=== PATIENT | female | born 1955 | race Caucasian/White ===

== ENCOUNTER 2022-07-03 08:26 | Inpatient (IN) | payer MEDICARE, MEDICAID ==
[~2022-07-03] VITALS: Ht 157.5 cm; Wt 59.4 kg
[2022-07-03] MEDS ORDERED: PIPERACILLIN/TAZ 3.375G PREMIX 50 ML IV ONE (08:45)
[2022-07-03] MEDS ORDERED: ACETAMINOPHEN 650MG SUPP PR ONE (08:45)
[2022-07-03] MEDS ORDERED: SODIUM CHLORIDE 0.9% 1000ML BAG (SEPSIS BOLUS) IV ONE (08:45)
[2022-07-03] MEDS ORDERED: VANCOMYCIN 1G PREMIX 200 ML IV ONE (08:45)
[2022-07-03 09:07] LABS: BASOPHILS % 0.3 % (0.0-2.0); EOSINOPHILS % 3.2 % (0.0-5.0); HEMATOCRIT. 35.8 % (36.0-48.0); HEMOGLOBIN. 11.3 g/dL (12.0-16.0); LYMPHOCYTES % 21.1 % (20.0-50.0); MEAN CORPUSCULAR HEMOGLOBIN 26.6 pg (28.0-32.0); MEAN CORPUSCULAR VOLUME 84.1 fL (81.0-99.0); MEAN PLATELET VOLUME 8.5 fl (7.4-10.4); MONOCYTES % 6.4 % (2.0-8.0); PLATELET 297 x1000/uL (130-400); RED BLOOD CELL COUNT 4.26 mill/uL (4.2-5.4); RED CELL DISTRIBUTION WIDTH 16.8 % (11.6-14.6)
[2022-07-03 09:20] LABS: PROTHROMBIN TIME 10.8 sec (9.6-11.0)
[2022-07-03 09:22] LABS: BG BASE EXCESS 4.5 mmol/L (-2.0-2.0); BG CARBOXYHEMOGLOBIN 0.3 % (0.5-1.5); BG DEOXYHEMOGLOBIN 0.9 % (0.0-5.0); BG FRACTION INSPIRED OXYGEN 24; BG HCO3 ACT 28.8 mmol/L (22.0-26.0); BG METHEMOGLOBIN 0.3 % (0.0-1.5); BG OXYGEN SATURATION 99.1 % (92.0-98.5); BG OXYHEMOGLOBIN 98.5 % (94.0-97.0); BG PCO2 41.9 mmHg (35.0-45.0); BG PH 7.455 (7.350-7.450); BG PO2 170.5 mmHg (75.0-100.0); BG SAMPLE SITE RIGHT RADIAL; BG TOTAL HEMOGLOBIN 11.2 g/dL (12.0-18.0); BG VENT MODE T PIECE
[2022-07-03 09:23] LABS: CHLORIDE 105 mEq/L (98-107)
[2022-07-03 10:49] LABS: CLARITY URINE CLEAR (CLEAR); COLOR URINE YELLOW (YELLOW); KETONES URINE NEGATIVE (NEGATIVE); LEUKOCYTE ESTERASE URINE 1+ (NEGATIVE); NITRITE URINE POSITIVE (NEGATIVE); OCCULT BLOOD URINE NEGATIVE (NEGATIVE); PH URINE 5.5 (4.5-8.0); PROTEIN URINE 1+ (NEGATIVE); SPECIFIC GRAVITY URINE 1.039 (1.005-1.030); UROBILINOGEN URINE 0.2 E.U./dL (0.2-1.0)
[2022-07-03 16:00] VITALS: BP 130/52
[2022-07-03 16:30] VITALS: BP 130/52
[2022-07-03] MEDS ORDERED: ONDANSETRON HCL 4MG/2ML INJ IV PRN (16:45)
[2022-07-03] MEDS ORDERED: ACETAMINOPHEN 325MG TABLET PO PRN (16:45)
[2022-07-03] MEDS: SODIUM CHLORIDE 0.9% 1,000 ML IV SCH (19:46)
[2022-07-03 20:00] VITALS: BP 131/56
[2022-07-03] MEDS: PIPERACILLIN/TAZOBACTAM 3.375 G in DEXTROSE 5% WATER 50 ML IV SCH (20:38)
[2022-07-03] MEDS ORDERED: ACET160S GT (23:03)
[2022-07-03] MEDS ORDERED: LEVE10006 GT (23:03)
[2022-07-03] MEDS ORDERED: AMLO5TAB88 GT (23:03)
[2022-07-03] MEDS ORDERED: ASCO500C18 PO (23:03)
[2022-07-03] MEDS ORDERED: ALBU05 NEB (23:03)
[2022-07-03] MEDS ORDERED: FAMO20TA8 GT (23:03)
[2022-07-03] MEDS ORDERED: DEXTL GT (23:03)
[2022-07-03] MEDS ORDERED: ZINC50TA69 GT (23:03)
[2022-07-04] VITALS: BP 132/57
[2022-07-04 04:00] VITALS: BP 158/79
[2022-07-04] MEDS: SODIUM CHLORIDE 0.9% 1,000 ML IV SCH ×2 (06:05→22:15)
[2022-07-04] MEDS: PIPERACILLIN/TAZOBACTAM 3.375 G in DEXTROSE 5% WATER 50 ML IV SCH ×3 (06:18→22:15)
[2022-07-04] MEDS ORDERED: IPRATROPIUM/ALBUTEROL 0.5-3(2.5)MG/3ML NEB HHN PRN (07:15)
[2022-07-04 07:23] LABS: CHLORIDE 106 mEq/L (98-107)
[2022-07-04 07:38] LABS: BASOPHILS % 0.3 % (0.0-2.0); EOSINOPHILS % 3.3 % (0.0-5.0); HEMATOCRIT. 35.3 % (36.0-48.0); HEMOGLOBIN. 11.3 g/dL (12.0-16.0); LYMPHOCYTES % 20.7 % (20.0-50.0); MEAN CORPUSCULAR HEMOGLOBIN 26.8 pg (28.0-32.0); MEAN CORPUSCULAR VOLUME 83.3 fL (81.0-99.0); MEAN PLATELET VOLUME 8.3 fl (7.4-10.4); MONOCYTES % 5.7 % (2.0-8.0); PLATELET 277 x1000/uL (130-400); RED BLOOD CELL COUNT 4.24 mill/uL (4.2-5.4); RED CELL DISTRIBUTION WIDTH 16.5 % (11.6-14.6)
[2022-07-04 08:00] VITALS: BP 127/91
[2022-07-04 12:00] VITALS: BP 140/64
[2022-07-04 16:00] VITALS: BP 151/64
[2022-07-04] MEDS: VANCOMYCIN 500MG PREMIX 100 ML IV SCH (18:00)
[2022-07-04 20:00] VITALS: BP 148/67
[2022-07-05] VITALS: BP 157/66
[2022-07-05] MEDS: IPRATROPIUM/ALBUTEROL 0.5-3(2.5)MG/3ML NEB HHN SCH ×4 (00:10→22:00)
[2022-07-05 04:00] VITALS: BP 139/60
[2022-07-05] MEDS: PIPERACILLIN/TAZOBACTAM 3.375 G in DEXTROSE 5% WATER 50 ML IV SCH ×3 (06:42→22:17)
[2022-07-05] MEDS: VANCOMYCIN 500MG PREMIX 100 ML IV SCH (06:43)
[2022-07-05 08:00] VITALS: BP 134/57
[2022-07-05] MEDS: SODIUM CHLORIDE 0.9% 1,000 ML IV SCH ×2 (08:23→22:17)
[2022-07-05 12:00] VITALS: BP 128/46
[2022-07-05 16:00] VITALS: BP 132/54
[2022-07-05 20:00] VITALS: BP 124/50
[2022-07-06] VITALS: BP 120/45
[2022-07-06 04:00] VITALS: BP 122/52
[2022-07-06] MEDS: PIPERACILLIN/TAZOBACTAM 3.375 G in DEXTROSE 5% WATER 50 ML IV SCH ×2 (06:32→17:02)
[2022-07-06 07:34] LABS: BASOPHILS % 0.4 % (0.0-2.0); EOSINOPHILS % 3.3 % (0.0-5.0); HEMOGLOBIN. 11.1 g/dL (12.0-16.0); LYMPHOCYTES % 21.3 % (20.0-50.0); MEAN CORPUSCULAR HEMOGLOBIN 26.8 pg (28.0-32.0); MEAN CORPUSCULAR VOLUME 82.3 fL (81.0-99.0); MEAN PLATELET VOLUME 8.5 fl (7.4-10.4); PLATELET 273 x1000/uL (130-400); RED BLOOD CELL COUNT 4.12 mill/uL (4.2-5.4)
[2022-07-06] MEDS: IPRATROPIUM/ALBUTEROL 0.5-3(2.5)MG/3ML NEB HHN SCH ×2 (07:57→15:39)
[2022-07-06 07:58] LABS: CHLORIDE 101 mEq/L (98-107)
[2022-07-06 08:00] VITALS: BP 140/55
[2022-07-06 08:13] LABS: CREATINE KINASE 32 IU/L (26-192); VANCOMYCIN TROUGH 1.8 ug/mL (5.0-10.0)
[2022-07-06] MEDS ORDERED: POTASSIUM CHLORIDE 20MEQ/PACKET GT NR (08:30)
[2022-07-06] MEDS: SODIUM CHLORIDE 0.9% 1,000 ML IV SCH (10:26)
[2022-07-06 12:00] VITALS: BP 143/44
[2022-07-06 16:00] VITALS: BP 121/40
[2022-07-06 20:14] VITALS: BP 125/45
== END 2022-07-06 23:20 | DRG 853 ==
LOC: ER 08:26 → EDBEDREQSVC 12:05 → EDBEDREQ 12:05 → EDBEDREQTM 12:05 → 6WST 12:52 → EDBEDREQTM 13:00 → EDBEDREQ 13:00 → ENRESERV 13:18 → EDBEDREQ 16:38
PROVIDERS: ADMIT Family Medicine Adult Medicine; ATTEND Family Medicine Adult Medicine
PROC: 0JB70ZZ Excision of Back Subcutaneous Tissue and Fascia, Open Approach (ICD-10-PCS; principal; 2022-07-04)
DX: A41.1 Sepsis due to other specified staphylococcus (principal); E43 Unspecified severe protein-calorie malnutrition; L89.153 Pressure ulcer of sacral region, stage 3; J96.20 Acute and chronic respiratory failure, unspecified whether with hypoxia or hypercapnia; N39.0 Urinary tract infection, site not specified; I82.403 Acute embolism and thrombosis of unspecified deep veins of lower extremity, bilateral; G93.40 Encephalopathy, unspecified; B96.5 Pseudomonas (aeruginosa) (mallei) (pseudomallei) as the cause of diseases classified elsewhere; Z20.822 Contact with and (suspected) exposure to COVID-19; G40.909 Epilepsy, unspecified, not intractable, without status epilepticus; K21.9 Gastro-esophageal reflux disease without esophagitis; I10 Essential (primary) hypertension; I25.2 Old myocardial infarction; R13.10 Dysphagia, unspecified; Z68.24 Body mass index [BMI] 24.0-24.9, adult; Z86.73 Personal history of transient ischemic attack (TIA), and cerebral infarction without residual deficits; Z93.1 Gastrostomy status
CPT/HCPCS: 36415; 36600; 71045; 80048; 80053; 80202; 81003; 82375; 82550; 82805; 82962; 83605; 84145; 84443; 84484; 85025; 87077; 87186; 87426; 87804; 93005; 93970; 94640; 99285; C9803; J2543; J3370; J7030; J7060

== ENCOUNTER 2022-07-28 20:53 | Inpatient (IN) | payer MEDICARE, MEDICAID ==
[~2022-07-28] VITALS: Ht 160 cm; Wt 54.4 kg
[~2022-07-28 20:53] MED LIST: ACET160S GT; ALBU05 NEB; AMLO5TAB88 GT; ASCO500C18 PO; DEXTL GT; FAMO20TA8 GT; LEVE10006 GT; ZINC50TA69 GT
[2022-07-28] MEDS ORDERED: CEFEPIME 1,000 MG in DEXTROSE 5% WATER 50 ML IV STA (21:35)
[2022-07-28] MEDS ORDERED: SODIUM CHLORIDE 0.9% 1,000 ML IV ONE (21:45)
[2022-07-28] MEDS ORDERED: ACETAMINOPHEN 650MG SUPP PR ONE (21:45)
[2022-07-28] MEDS ORDERED: VANCOMYCIN 1G PREMIX 200 ML IV SCH (21:45)
[2022-07-28 22:49] LABS: BASOPHILS % 0.4 % (0.0-2.0); EOSINOPHILS % 4.9 % (0.0-5.0); HEMATOCRIT. 33.4 % (36.0-48.0); HEMOGLOBIN. 11.2 g/dL (12.0-16.0); MEAN CORPUSCULAR HEMOGLOBIN 27.5 pg (28.0-32.0); MEAN PLATELET VOLUME 9.6 fl (7.4-10.4); MONOCYTES % 8.4 % (2.0-8.0); NEUTROPHILS % 73.3 % (40.0-76.0); PLATELET 207 x1000/uL (130-400); RED BLOOD CELL COUNT 4.07 mill/uL (4.2-5.4)
[2022-07-28 22:57] LABS: CHLORIDE 100 mEq/L (98-107)
[2022-07-28 22:59] LABS: PROTHROMBIN TIME 10.6 sec (9.6-11.0)
[2022-07-28] MEDS ORDERED: ACETAMINOPHEN 650MG SUPP PR NR (23:00)
[2022-07-28] MEDS ORDERED: ACETAMINOPHEN 650MG/20.3ML UDC GT ONE (23:45)
[2022-07-29] MEDS ORDERED: ACETAMINOPHEN 650MG/20.3ML UDC GT NR (02:30)
[2022-07-29] MEDS ORDERED: GUAIFENESIN 200MG/10ML SUGAR FREE UDC GT PRN (03:30)
[2022-07-29] MEDS ORDERED: IPRATROPIUM/ALBUTEROL 0.5-3(2.5)MG/3ML NEB NEB PRN (03:30)
[2022-07-29] MEDS: SODIUM CHLORIDE 0.9% 1,000 ML IV SCH ×2 (03:30→23:30)
[2022-07-29] MEDS ORDERED: CLONIDINE 0.1MG TABLET GT PRN (03:30)
[2022-07-29] MEDS ORDERED: ACETAMINOPHEN 325MG TABLET PEG PRN (03:30)
[2022-07-29] MEDS ORDERED: ACETAMINOPHEN GT PRN (03:30)
[2022-07-29] MEDS ORDERED: ONDANSETRON HCL 4MG/2ML INJ IV PRN (03:30)
[2022-07-29] MEDS: ALBUTEROL (0.5%) 2.5MG/0.5ML NEB HHN SCH ×6 (04:48→23:30)
[2022-07-29] MEDS: PIPERACILLIN/TAZ 3.375G PREMIX 50 ML IV NR ×2 (06:00→11:13)
[2022-07-29 07:53] LABS: CLARITY URINE TURBID (CLEAR); COLOR URINE YELLOW (YELLOW); KETONES URINE NEGATIVE (NEGATIVE); LEUKOCYTE ESTERASE URINE 3+ (NEGATIVE); NITRITE URINE POSITIVE (NEGATIVE); OCCULT BLOOD URINE 1+ (NEGATIVE); PH URINE 7.5 (4.5-8.0); PROTEIN URINE 1+ (NEGATIVE); SPECIFIC GRAVITY URINE 1.015 (1.005-1.030); UROBILINOGEN URINE 0.2 E.U./dL (0.2-1.0)
[2022-07-29] MEDS ORDERED: LORATADINE 10MG TABLET PO SCH (09:00)
[2022-07-29] MEDS: AMLODIPINE 5MG TABLET GT SCH (10:07)
[2022-07-29] MEDS: ZINC SULFATE 220 MG ( 50 ) CAPSULE GT SCH (10:07)
[2022-07-29] MEDS: FAMOTIDINE 20MG TABLET GT SCH ×2 (10:07→20:35)
[2022-07-29] MEDS: ASCORBIC ACID 500 MG TABLET PO SCH (10:07)
[2022-07-29] MEDS: MULTIVITAMINS,THER W-MINERALS TABLET PO SCH (10:07)
[2022-07-29] MEDS: LEVETIRACETAM 500MG/5ML CUP GT SCH ×2 (10:07→18:39)
[2022-07-29 10:47] LABS: BASOPHILS % 0.4 % (0.0-2.0); EOSINOPHILS % 4.4 % (0.0-5.0); HEMATOCRIT. 33.7 % (36.0-48.0); HEMOGLOBIN. 11.3 g/dL (12.0-16.0); MEAN CORPUSCULAR HEMOGLOBIN 27.5 pg (28.0-32.0); MEAN CORPUSCULAR VOLUME 82.2 fL (81.0-99.0); MEAN PLATELET VOLUME 9.7 fl (7.4-10.4); MONOCYTES % 9.2 % (2.0-8.0); PLATELET 207 x1000/uL (130-400); RED CELL DISTRIBUTION WIDTH 19.2 % (11.6-14.6)
[2022-07-29 10:53] LABS: CHLORIDE 106 mEq/L (98-107)
[2022-07-29] MEDS: VANCOMYCIN 750MG PMX (XELLIA) 150 ML IV SCH (11:00)
[2022-07-29] MEDS ORDERED: PIPERACILLIN/TAZOBACTAM 3.375G in DEXT 5% WATER 50ML IV SCH (14:00)
[2022-07-29] MEDS ORDERED: DIATR MEGLU/DIATRIZOATE SOLN 30ML PO NR (17:15)
[2022-07-29] MEDS ORDERED: DIATR MEGLU/DIATRIZOATE SOLN 30ML ONE (17:37)
[2022-07-29 18:25] LABS: TOTAL IRON BINDING CAPACITY 199 ug/dL (250-450)
[2022-07-29 18:36] LABS: FERRITIN 112 ng/mL (10-291)
[2022-07-29] MEDS: ACETAMINOPHEN 325MG TABLET PEG PRN (18:40)
[2022-07-29 19:00] VITALS: BP 116/56
[2022-07-29 20:00] VITALS: BP 116/56
[2022-07-29] MEDS: PIPERACILLIN/TAZOBACTAM 3.375G in DEXT 5% WATER 50ML IV SCH (20:35)
[2022-07-30] VITALS: BP 115/54
[2022-07-30] MEDS: VANCOMYCIN 750MG PMX (XELLIA) 150 ML IV SCH (01:44)
[2022-07-30] MEDS: ALBUTEROL (0.5%) 2.5MG/0.5ML NEB HHN SCH ×6 (03:30→23:30)
[2022-07-30 04:00] VITALS: BP 100/42
[2022-07-30] MEDS: PIPERACILLIN/TAZOBACTAM 3.375G in DEXT 5% WATER 50ML IV SCH (05:27)
[2022-07-30 07:01] LABS: HEMATOCRIT. 31.5 % (36.0-48.0); HEMOGLOBIN. 10.5 g/dL (12.0-16.0); MEAN CORPUSCULAR HEMOGLOBIN 27.5 pg (28.0-32.0); MEAN CORPUSCULAR VOLUME 82.6 fL (81.0-99.0); PLATELET 195 x1000/uL (130-400); RED BLOOD CELL COUNT 3.82 mill/uL (4.2-5.4)
[2022-07-30 07:03] LABS: CHLORIDE 108 mEq/L (98-107)
[2022-07-30 09:00] LABS: PLATELET ESTIMATE NORMAL
[2022-07-30] MEDS: CETIRIZINE 10MG TABLET PO SCH ×2 (11:30→19:17)
[2022-07-30] MEDS: LEVETIRACETAM 500MG/5ML CUP GT SCH ×2 (13:25→19:17)
[2022-07-30] MEDS: MULTIVITAMINS,THER W-MINERALS TABLET PO SCH (13:25)
[2022-07-30] MEDS: AMLODIPINE 5MG TABLET GT SCH (13:25)
[2022-07-30] MEDS: ASCORBIC ACID 500 MG TABLET PO SCH ×2 (13:30→19:17)
[2022-07-30] MEDS: FAMOTIDINE 20MG TABLET GT SCH ×2 (13:30→20:02)
[2022-07-30] MEDS ORDERED: VANCOMYCIN 750MG PREMIX 150 ML IV SCH (14:00)
[2022-07-30] MEDS: ZINC SULFATE 220 MG ( 50 ) CAPSULE GT SCH (19:17)
[2022-07-30] MEDS: CEFEPIME 2,000 MG in DEXT 5% WATER 100 ML IV SCH (19:18)
[2022-07-30] MEDS: FERROUS SULFATE 325MG TABLET PO SCH (19:18)
[2022-07-30] MEDS: ACETAMINOPHEN 325MG TABLET PEG PRN (19:19)
[2022-07-30] MEDS: SODIUM CHLORIDE 0.9% 1,000 ML IV SCH (19:30)
[2022-07-30 20:00] VITALS: BP 129/67
[2022-07-30] MEDS ORDERED: CEFEPIME HCL 1000MG/VIAL INJ IM SCH (21:00)
[2022-07-31] VITALS: BP 118/71
[2022-07-31] MEDS: ALBUTEROL (0.5%) 2.5MG/0.5ML NEB HHN SCH ×5 (03:30→23:28)
[2022-07-31 04:00] VITALS: BP 124/76
[2022-07-31] MEDS: CEFEPIME 2,000 MG in DEXT 5% WATER 100 ML IV SCH (05:06)
[2022-07-31 06:16] LABS: HEMATOCRIT. 32.5 % (36.0-48.0); HEMOGLOBIN. 10.7 g/dL (12.0-16.0); MEAN CORPUSCULAR HEMOGLOBIN 27.4 pg (28.0-32.0); MEAN CORPUSCULAR VOLUME 83.1 fL (81.0-99.0); MEAN PLATELET VOLUME 9.5 fl (7.4-10.4); PLATELET 224 x1000/uL (130-400); RED BLOOD CELL COUNT 3.91 mill/uL (4.2-5.4); RED CELL DISTRIBUTION WIDTH 18.3 % (11.6-14.6)
[2022-07-31 07:28] LABS: CHLORIDE 105 mEq/L (98-107)
[2022-07-31 08:00] VITALS: BP 113/60
[2022-07-31] MEDS ORDERED: POTASSIUM CHLORIDE 20MEQ TABLET SR PO NR (09:00)
[2022-07-31] MEDS: ASCORBIC ACID 500 MG TABLET PO SCH ×2 (10:45→19:54)
[2022-07-31] MEDS: FAMOTIDINE 20MG TABLET GT SCH ×2 (10:45→21:00)
[2022-07-31] MEDS: MULTIVITAMINS,THER W-MINERALS TABLET PO SCH (10:45)
[2022-07-31] MEDS: AMLODIPINE 5MG TABLET GT SCH (10:46)
[2022-07-31] MEDS: ZINC SULFATE 220 MG ( 50 ) CAPSULE GT SCH (10:46)
[2022-07-31] MEDS: FERROUS SULFATE 325MG TABLET PO SCH ×2 (10:46→17:00)
[2022-07-31] MEDS: CETIRIZINE 10MG TABLET PO SCH ×2 (10:46→19:54)
[2022-07-31] MEDS: LEVETIRACETAM 500MG/5ML CUP GT SCH ×2 (10:47→19:53)
[2022-07-31 11:40] LABS: PLATELET ESTIMATE NORMAL
[2022-07-31 12:00] VITALS: BP 143/65
[2022-07-31] MEDS: SODIUM CHLORIDE 0.9% 1,000 ML IV SCH (15:30)
[2022-07-31 16:00] VITALS: BP 139/70
[2022-07-31 20:00] VITALS: BP 155/83
[2022-08-01] VITALS: BP 158/60
[2022-08-01] MEDS: ALBUTEROL (0.5%) 2.5MG/0.5ML NEB HHN SCH ×3 (03:27→12:57)
[2022-08-01 04:00] VITALS: BP 134/80
[2022-08-01 08:00] VITALS: BP 141/50
[2022-08-01 08:22] LABS: CHLORIDE 108 mEq/L (98-107)
[2022-08-01 08:23] LABS: HEMATOCRIT 31.3 % (36.0-48.0); HEMOGLOBIN 10.5 g/dL (12.0-16.0); MEAN CORPUSCULAR HEMOGLOBIN 27.6 pg (28.0-32.0); PLATELET 241 x1000/uL (130-400); RED BLOOD CELL COUNT 3.81 mill/uL (4.2-5.4); RED CELL DISTRIBUTION WIDTH 18.4 % (11.6-14.6)
[2022-08-01] MEDS: ASCORBIC ACID 500 MG TABLET PO SCH (10:22)
[2022-08-01] MEDS: FERROUS SULFATE 325MG TABLET PO SCH (10:22)
[2022-08-01] MEDS: FAMOTIDINE 20MG TABLET GT SCH (10:22)
[2022-08-01] MEDS: MULTIVITAMINS,THER W-MINERALS TABLET PO SCH (10:22)
[2022-08-01] MEDS: ZINC SULFATE 220 MG ( 50 ) CAPSULE GT SCH (10:32)
[2022-08-01] MEDS: AMLODIPINE 5MG TABLET GT SCH (10:33)
[2022-08-01] MEDS: LEVETIRACETAM 500MG/5ML CUP GT SCH (10:34)
[2022-08-01] MEDS ORDERED: LEVOFLOXACIN 250MG TABLET PO SCH (11:00)
[2022-08-01 12:00] VITALS: BP 150/65
[2022-08-01 13:21] VITALS: BP 141/50
[2022-08-02] MEDS ORDERED: LEVOFLOXACIN 250MG TABLET PO SCH (11:00)
== END 2022-08-01 19:10 | DRG 602 ==
LOC: ER 20:53 → 6EST 07-29 01:07 → ENRESERV 07-29 11:02 → SUPCPDRO 07-29 12:49
PROVIDERS: ADMIT Family Medicine Adult Medicine; ATTEND Family Medicine Adult Medicine
DX: L03.115 Cellulitis of right lower limb (principal); E43 Unspecified severe protein-calorie malnutrition; L89.153 Pressure ulcer of sacral region, stage 3; R53.2 Functional quadriplegia; G92.8 Other toxic encephalopathy; J96.20 Acute and chronic respiratory failure, unspecified whether with hypoxia or hypercapnia; K94.23 Gastrostomy malfunction; I82.513 Chronic embolism and thrombosis of femoral vein, bilateral; N39.0 Urinary tract infection, site not specified; L03.116 Cellulitis of left lower limb; D64.9 Anemia, unspecified; E87.6 Hypokalemia; G40.909 Epilepsy, unspecified, not intractable, without status epilepticus; Z20.822 Contact with and (suspected) exposure to COVID-19; I10 Essential (primary) hypertension; I25.10 Atherosclerotic heart disease of native coronary artery without angina pectoris; K21.9 Gastro-esophageal reflux disease without esophagitis; R13.10 Dysphagia, unspecified; Z74.01 Bed confinement status; Z86.73 Personal history of transient ischemic attack (TIA), and cerebral infarction without residual deficits; Z79.899 Other long term (current) drug therapy; I25.2 Old myocardial infarction; Z93.0 Tracheostomy status; Z68.21 Body mass index [BMI] 21.0-21.9, adult
CPT/HCPCS: 36415; 71045; 74018; 80048; 80053; 80061; 80202; 81003; 82607; 82728; 82746; 83036; 83540; 83550; 83605; 83735; 84100; 84145; 84484; 85025; 85027; 85044; 87077; 87186; 87426; 93005; 93970; 94640; 99285; C9803; J0692; J2543; J3370; J7030; J7060; Q9963